=== PATIENT | male | born 1990 | race Caucasian/White ===

== ENCOUNTER 2017-03-04 23:05 | Emergency (ER) | payer SELFPAY ==
[2017-03-04 23:10] VITALS: TEMP 98.1
--- NOTE | 2017-03-05 00:54 | ED PDOC ---
HPI: Psych/Substance Abuse Time Seen by Provider: 03/04/17 23:15 Chief Complaint (Nursing): Substance Abuse Chief Complaint (Provider): substance abuse ED Caveat: Intoxicated, Uncooperative History Per: EMS History/Exam Limitations: intoxication Onset/Duration Of Symptoms: Unknown Current Symptoms Are (Timing): Still Present Modifying Factor(s): Other (PCP) Severity: Moderate Associated Symptoms: Agitation Involuntary Hold By: Emergency Physician Additional Complaint(s): Pt BIB EMS for bizarre behavior; admitted to PCP abuse and known to ED for same. Past Medical History Reviewed: Historical Data, Nursing Documentation, Vital Signs, Unable To Obtain Vital Signs: Last Vital Signs Temp 98.1 F 03/04/17 23:06 Pulse 95 H 03/04/17 23:06 Resp 16 03/04/17 23:06 BP 159/91 H 03/04/17 23:06 Pulse Ox 98 03/04/17 23:06 - Medical History PMH: No Chronic Diseases - Family History Family History: States: Unknown Family Hx - Living Arrangements Living Arrangements: With Family - Social History Current smoker - smoking cessation education provided: Yes Alcohol: Occasional Drugs: Other (PCP) - Immunization History Hx Tetanus Toxoid Vaccination: No Hx Influenza Vaccination: No Hx Pneumococcal Vaccination: No - Home Medications Home Medications: Ambulatory Orders Medication Instructions Recorded No Known Home Med [No Known Home 02/11/13 Med] Unobtainable 08/14/16 - Allergies Allergies/Adverse Reactions: Allergies Allergy/AdvReac Type Severity Reaction Status Date / Time No Known Allergies Allergy Verified 03/04/17 23:06 Review of Systems Review Of Systems: ROS cannot be obtained secondary to pt's inabilty to answer questions. Physical Exam - Reviewed Nursing Documentation Reviewed: Yes Vital Signs Reviewed: Yes - Physical Exam Appears: Positive for: Well, Non-toxic Head Exam: Positive for: ATRAUMATIC, NORMOCEPHALIC Skin: Positive for: Normal Color, Warm, Dry Eye Exam: Positive for: Normal appearance, EOMI, PERRL ENT: Positive for: Normal ENT Inspection Neck: Positive for: Normal, Painless ROM, Supple Cardiovascular/Chest: Positive for: Regular Rate, Rhythm Respiratory: Positive for: Normal Breath Sounds Gastrointestinal/Abdominal: Positive for: Normal Exam, Bowel Sounds, Soft. Negative for: Tenderness Neurologic/Psych: Positive for: Alert, Mood/Affect (agitated), Other ( uncoopetrative with staff and attempting to abscond). Negative for: Oriented ( only to person), Motor/Sensory Deficits - Laboratory Results Result Diagrams: 03/05/17 00:45 03/05/17 00:45 - ECG O2 Sat by Pulse Oximetry: 98 - Critical Care Total Time (In Min): 30 Medical Decision Making Medical Decision Makin yo male under PCP influence Labs, IM Haldol/Ativan 4 point restraints ordered for patient and staff safety Labs reviewed no clinically significant abnormalities At 6AM patient AAO x3 and has steady gait with fluent speech; stable on discharge home Dx PCP abuse Disposition - Clinical Impression Clinical Impression: PCP (phencyclidine) abuse - Disposition Disposition: Routine/Home Disposition Time: 06:02 Condition: STABLE Instructions: Polysubstance Abuse (ED) Forms: [facility] (Kosovan)
[2017-03-05 00:57] LABS: BASO % 0.4 % (0.0-2.0); EOS # 0.2 K/uL (0.0-0.7); EOS % 2.5 % (0.0-4.0); HEMATOCRIT 42.6 % (35.0-51.0); LYMPH # 0.9 K/uL (1.0-4.3); LYMPH % 9.7 % (20.0-40.0); MEAN CELL VOLUME 87.6 fl (80.0-94.0); MEAN CORPUSCULAR HEMOGLOBIN 28.6 pg (27.0-31.0); MEAN CORPUSCULAR HGB CONC 32.7 g/dL (33.0-37.0); MEAN PLATELET VOLUME 9.1 fl (7.2-11.7); MONO # 0.7 K/uL (0.0-0.8); MONO % 7.2 % (0.0-10.0); NEUT # 7.7 K/uL (1.8-7.0); NEUT % 80.2 % (50.0-75.0); PLATELET COUNT 184 K/uL (130-400); RED CELL DISTRIBUTION WIDTH 14.5 % (11.5-14.5); WHITE BLOOD COUNT 9.6 K/uL (4.8-10.8)
[2017-03-05 01:08] LABS: ALB/GLOB RATIO 1.7 (1.0-2.1); ALCOHOL SERUM < 10 mg/dl (0-10); ALKALINE PHOSPHATASE 60 U/L (38-126); ALT/SGPT 37 U/L (21-72); AST/SGOT 24 U/L (17-59); BILIRUBIN,TOTAL 0.3 mg/dl (0.2-1.3); BLOOD UREA NITROGEN 22 mg/dl (9-20); CALCIUM 9.4 mg/dL (8.4-10.2); CARBON DIOXIDE 24 mmol/L (22-30); CHLORIDE 106 mmol/L (98-107); GFR AFRICAN-AMERICAN > 60; GLUCOSE,RANDOM 109 mg/dL (75-110); SODIUM 142 mmol/l (132-148); TOTAL PROTEIN 7.5 G/DL (6.3-8.2)
[2017-03-05 02:36] LABS: EOSINOPHIL 3 % (0-7); NEUTROPHIL 78 % (42-75); REACTIVE LYMPHOCYTES 1 % (0-0); TOTAL CELLS COUNTED 100
[2017-03-05 02:39] LABS: LARGE PLATELETS PRESENT
[2017-03-05 03:53] VITALS: RESP 18
[2017-03-05 03:55] VITALS: BP 110/52; PULSE 58
[2017-03-05 06:02] VITALS: O2SAT 98
== END 2017-03-05 06:12 | disposition home or self-care (01) ==
LOC: H.ER 23:05
DX: F16.10 Hallucinogen abuse, uncomplicated (principal); F17.200 Nicotine dependence, unspecified, uncomplicated
CPT/HCPCS: 80053; 82948; 85025; 96372; 99285; G0480; J1630; J2060

== ENCOUNTER 2018-03-11 23:42 | Emergency (ER) | payer SELFPAY ==
[2018-03-11 23:46] VITALS: RESP 16
--- NOTE | 2018-03-12 00:14 | ED PDOC ---
HPI: Psych/Substance Abuse Time Seen by Provider: 03/11/18 23:50 Chief Complaint (Nursing): Substance Abuse Chief Complaint (Provider): Substance Abuse History Per: Patient History/Exam Limitations: no limitations Severity: Mild Involuntary Hold By: None Additional Complaint(s): 27 year old male with a history of PCP use presents to the ED for supposed drug use today. Patient denies taking any drugs now. Patient states he was trying to get home when he feel asleep on the curb. Patient states that he told EMS he smoked PCP, but meant that he smoked PCP in the past. Patient denies alcohol use. PMD: None provided. Past Medical History Reviewed: Historical Data, Nursing Documentation, Vital Signs Vital Signs: Last Vital Signs Temp 98.9 F 03/11/18 23:44 Pulse 92 H 03/11/18 23:44 Resp 16 03/11/18 23:44 BP 152/87 H 03/11/18 23:44 Pulse Ox 96 03/11/18 23:44 - Medical History PMH: No Chronic Diseases - Surgical History Surgical History: No Surg Hx - Family History Family History: States: No Known Family Hx - Social History Alcohol: None (pt denies) Drugs: Other (PCP) - Immunization History Hx Tetanus Toxoid Vaccination: No Hx Influenza Vaccination: No Hx Pneumococcal Vaccination: No - Home Medications Home Medications: Ambulatory Orders Medication Instructions Recorded No Known Home Med 02/11/13 Unobtainable 08/14/16 - Allergies Allergies/Adverse Reactions: Allergies Allergy/AdvReac Type Severity Reaction Status Date / Time No Known Allergies Allergy Verified 03/04/17 23:06 Review of Systems ROS Statement: Except As Marked, All Systems Reviewed And Found Negative Physical Exam - Reviewed Nursing Documentation Reviewed: Yes Vital Signs Reviewed: Yes - Physical Exam Appears: Positive for: Well, Non-toxic, No Acute Distress Head Exam: Positive for: ATRAUMATIC, NORMOCEPHALIC Skin: Positive for: Normal Color, Warm, Dry Eye Exam: Positive for: Normal appearance Cardiovascular/Chest: Positive for: Regular Rate, Rhythm Respiratory: Positive for: Normal Breath Sounds Neurologic/Psych: Positive for: Alert, Oriented (3x), Gait (steady). Negative for: Motor/Sensory Deficits - ECG O2 Sat by Pulse Oximetry: 96 (RA) Pulse Ox Interpretation: Normal Medical Decision Making Medical Decision Makin:50 Impression: 27 year old male patient presenting with possible drug use, however patient is alert and orientedx3, and has the capacity to be able to decide for himself if he wants to stay in ED. Patient states he feels well enough to go home. Patient is well-appearing, stable for discharge. Scribe Attestation: Documented byFaye Zaldivar, acting as a scribe for Tad Garza MD. Provider Scribe Attestation: All medical record entries made by the Scribe were at my direction and personally dictated by me. I have reviewed the chart and agree that the record accurately reflects my personal performance of the history, physical exam, medical decision making, and the department course for this patient. I have also personally directed, reviewed, and agree with the discharge instructions and disposition. Disposition - Clinical Impression Clinical Impression: PCP (phencyclidine) abuse - Disposition Referrals: [facility] [Outside] Disposition Time: 23:50 Condition: STABLE Instructions: Drug Abuse and Drug Addiction (DC) Forms: [email or web address] ([place]rian)
[2018-03-12 00:27] VITALS: BP 138/83; PULSE 84; TEMP 98.6; O2SAT 98
== END 2018-03-12 00:26 | disposition home or self-care (01) ==
LOC: H.ER 23:42
DX: F16.10 Hallucinogen abuse, uncomplicated (principal)